=== PATIENT | male | born 1985 | race Caucasian/White ===

== ENCOUNTER 2018-11-23 12:07 | Emergency (ER) | payer SELFPAY ==
[2018-11-23 15:18] VITALS: BP 126/88
== END 2018-11-23 15:18 | disposition home or self-care (01) ==
LOC: ED 12:07
DX: N21.1 Calculus in urethra (principal); F17.210 Nicotine dependence, cigarettes, uncomplicated; Z88.0 Allergy status to penicillin
CPT/HCPCS: 87491; 87591; J2001